=== PATIENT | male | born 1985 | race Caucasian/White ===

== ENCOUNTER 2020-03-24 11:42 | Outpatient (CLI) | payer SELFPAY | END 2020-03-24 11:43 | disposition home or self-care (01) | LOC: SPT 11:46 | PROVIDERS: Visit Provider Podiatrist Foot & Ankle Surgery | DX: Z47.89 Encounter for other orthopedic aftercare (principal); S93.326D Dislocation of tarsometatarsal joint of unspecified foot, subsequent encounter; X58.XXXD Exposure to other specified factors, subsequent encounter | CPT/HCPCS: 97760; L4361 ==

== ENCOUNTER 2020-04-01 09:08 | Outpatient (CLI) | payer SELFPAY ==
--- NOTE | 2020-04-01 09:15 | CT_ITS ---
WS: [id number] CT scan of the left foot. Additional two-dimensional coronal and sagittal reconstruction was faby d. MIP images were also performed. 04/01/2020 Clinical Data: fracture Comparison: Left foot, 03/24/2020. DLP: 793.[address] scans at [facility] use at least one of these dose optimization techniques: automat ed exposure control; mA and/or kV adjustment per patient size (includes targeted exams where dose is matched to clinical indication); or iterative reconstruction. Findings: There is a transverse fracture of the base of the third left metatarsal. However there is also a frac ture of the base of the left second metatarsal. The second metatarsal fracture is seen best on the ax ial views, 58 of 96.. The remainder the foot shows that the tarsal bones and phalanges are intact. Th e first, fourth and fifth metatarsals are normal. CT/CT foot LT wo con* [id number] Impression: 1. Transverse fracture of left third metatarsal. 2. Additional fracture of the base of the left second metatarsal.
== END 2020-04-01 09:09 | disposition home or self-care (01) ==
PROVIDERS: Visit Provider Podiatrist Foot & Ankle Surgery
DX: S92.332A Displaced fracture of third metatarsal bone, left foot, initial encounter for closed fracture (principal); S92.322A Displaced fracture of second metatarsal bone, left foot, initial encounter for closed fracture; X58.XXXA Exposure to other specified factors, initial encounter
CPT/HCPCS: 73700

== ENCOUNTER → 2020-04-27 08:23 | Outpatient (BNVA) | payer SELFPAY | PROVIDERS: Visit Provider Podiatrist Foot & Ankle Surgery | DX: S97.82XA Crushing injury of left foot, initial encounter (principal); S92.325A Nondisplaced fracture of second metatarsal bone, left foot, initial encounter for closed fracture; S92.335A Nondisplaced fracture of third metatarsal bone, left foot, initial encounter for closed fracture; X58.XXXA Exposure to other specified factors, initial encounter | CPT/HCPCS: 73630 ==

== ENCOUNTER → 2020-05-25 08:41 | Outpatient (BNVA) | payer SELFPAY | PROVIDERS: Visit Provider Podiatrist Foot & Ankle Surgery | DX: S93.326A Dislocation of tarsometatarsal joint of unspecified foot, initial encounter (principal); S97.82XA Crushing injury of left foot, initial encounter; X58.XXXA Exposure to other specified factors, initial encounter | CPT/HCPCS: 73630 ==

== ENCOUNTER → 2020-06-08 07:59 | Outpatient (BNVA) | payer SELFPAY | PROVIDERS: Visit Provider Podiatrist Foot & Ankle Surgery | DX: S97.82XD Crushing injury of left foot, subsequent encounter (principal); X58.XXXD Exposure to other specified factors, subsequent encounter | CPT/HCPCS: 73630 ==

== ENCOUNTER → 2020-06-23 14:04 | Outpatient (BNVA) | payer SELFPAY | PROVIDERS: Visit Provider Podiatrist Foot & Ankle Surgery | DX: S93.326A Dislocation of tarsometatarsal joint of unspecified foot, initial encounter (principal); S97.82XA Crushing injury of left foot, initial encounter; X58.XXXA Exposure to other specified factors, initial encounter | CPT/HCPCS: 73630 ==

== ENCOUNTER → 2020-09-16 11:39 | Outpatient (BNVA) | payer OTHER, SELFPAY | DX: Z20.822 Contact with and (suspected) exposure to COVID-19 (principal) | CPT/HCPCS: 87635 ==

== ENCOUNTER → 2020-11-01 13:16 | Outpatient (BNVA) | payer SELFPAY | PROVIDERS: Visit Provider Nurse Practitioner Family | DX: J02.9 Acute pharyngitis, unspecified (principal) | CPT/HCPCS: 87071; 87635; 87880 ==

== ENCOUNTER → 2021-01-15 10:48 | Outpatient (BNVA) | payer OTHER, SELFPAY | PROVIDERS: PCP Family Medicine; Visit Provider Registered Nurse Neonatal Intensive Care | DX: Z20.822 Contact with and (suspected) exposure to COVID-19 (principal) | CPT/HCPCS: 87635 ==

== ENCOUNTER 2021-12-15 10:35 | Outpatient (CLI) | payer OTHER, SELFPAY ==
--- NOTE | 2021-12-15 11:11 | XR_ITS ---
WS: [id number] Left foot, 3 views, 12/15/2021 Clinical Data: FOOT PAIN Comparison: Left foot, 06/23/2020. Findings: No fractures or dislocations are seen. No bone destruction or erosion is noted. There is a small buni on at the head of the left first metatarsal. XR/XR foot LT min 3V* [id number] Impression: Bunion at the head of the left first metatarsal.
--- NOTE | 2021-12-15 11:11 | XR_ITS ---
WS: [id number] Cervical spine, 3 views, 12/15/2021 Clinical Data: NECK PAIN Comparison: None. Findings: No compression fractures are seen. Degenerative disc narrowing at C5-C6 with anterior osteo phytes is seen. There is no prevertebral soft tissue swelling. The odontoid is unremarkable. The soft tissues of the neck and the lung apices are normal. The patient is had repair of a lateral right cla vicular fracture. XR/XR cervical spine 3V* [id number] Impression: Degenerative disc narrowing at C5-C6 with anterior osteophytes.
== END 2021-12-15 10:36 | disposition home or self-care (01) ==
PROVIDERS: PCP Family Medicine; Visit Provider Podiatrist Foot & Ankle Surgery
DX: M21.612 Bunion of left foot (principal); M47.892 Other spondylosis, cervical region; M25.78 Osteophyte, vertebrae; M79.672 Pain in left foot; M54.2 Cervicalgia
CPT/HCPCS: 72040; 73630

== ENCOUNTER → 2021-12-22 11:33 | Outpatient (BNVA) | payer OTHER, SELFPAY | PROVIDERS: PCP Family Medicine; Visit Provider Podiatrist Foot & Ankle Surgery | DX: S97.82XA Crushing injury of left foot, initial encounter (principal); M79.672 Pain in left foot; X58.XXXA Exposure to other specified factors, initial encounter | CPT/HCPCS: 73630 ==

== ENCOUNTER 2022-01-04 08:52 | Outpatient (CLI) | payer OTHER, SELFPAY ==
--- NOTE | 2022-01-04 09:30 | MR_ITS ---
WS: [id number] MRI OF THE LEFT FOOT WITHOUT GADOLINIUM ENHANCEMENT. INDICATION: Dorsal foot pain carpal metacarpal area TECHNIQUE: Coronal PD, coronal T2 fat sat, axial T1, axial T2, axial PD, sagittal STIR, sagittal T1 FINDINGS: Pes planus. Tiny plantar calcaneal spur. Normal plantar aponeurosis. Normal talus and calca neus. Normal tibial plafond. Normal tibiotalar articulation. Normal talonavicular articulation. Dista l Achilles is normal in appearance. Normal cuboid. Cuneiforms appear normal. Small amount of edema in the 3rd proximal metatarsal shaft small linear area of signal abnormality extending to the cortical surface suspicious for tiny nondisplaced fracture or stress fracture. Recommend correlation with area of pain. No other visualized fractures. Hallux valgus. Degenerative arthritis at the 1st MTP. No significant edema along the dorsal foot. No cystic or solid lesions. No drainable fluid collections. MR/MR foot LT wo con* [id number] IMPRESSION: 1. Hallux valgus with bunion deformity. Degenerative arthritis 1st MTP with a few periarticular erosions. 2. Tiny amount of edema in the shaft of the 3rd proximal metatarsal with a sma ll linear lucency suspicious for tiny nondisplaced traumatic fracture or stress fracture. Recommend correlation with area of pain. 3. Pes planus. 4. No other acute findings.
== END 2022-01-04 08:53 | disposition home or self-care (01) ==
PROVIDERS: PCP Family Medicine; Visit Provider Podiatrist Foot & Ankle Surgery
DX: S97.82XA Crushing injury of left foot, initial encounter (principal); M20.12 Hallux valgus (acquired), left foot; M21.612 Bunion of left foot; M19.072 Primary osteoarthritis, left ankle and foot; M21.42 Flat foot [pes planus] (acquired), left foot; X58.XXXA Exposure to other specified factors, initial encounter
CPT/HCPCS: 73718

== ENCOUNTER 2022-01-16 14:37 | Outpatient (RCR) | payer OTHER, SELFPAY | END 2022-02-07 23:59 | disposition home or self-care (01) | LOC: SPT 14:37 | PROVIDERS: PCP Family Medicine; Referring Provider Family Medicine; Visit Provider Family Medicine | DX: M79.671 Pain in right foot (principal); M54.2 Cervicalgia; M54.50 Low back pain, unspecified | CPT/HCPCS: 97110; 97162; 97164 ==

== ENCOUNTER 2022-08-14 09:12 | Outpatient (CLI) | payer SELFPAY ==
--- NOTE | 2022-08-14 09:28 | XRR_ITS ---
PROCEDURE INFORMATION: Exam: XR Chest Exam date and time: 08/14/2022 9:36 AM Age: 37 years old Clinical indication: Dyspnea and shortness of breath and wheezing; Patient HX: SOB, since covid in 2020; Additional info: Wheezing symptom/dyspnea on exertion TECHNIQUE: Imaging protocol: Radiologic exam of the chest. Views: 2 views. COMPARISON: CR XR cervical spine 3V* [id number] 12/15/2021 11:17 AM FINDINGS: Lungs: Unremarkable. No consolidation. Pleural spaces: Unremarkable. No pleural effusion. No pneumothorax. Heart/Mediastinum: Unremarkable. No cardiomegaly. Bones/joints: Prior plate and screw fixation of the right clavicle. XR/XR chest 2V* [id number] IMPRESSION: No acute cardiopulmonary abnormality.
== END 2022-08-14 09:13 | disposition home or self-care (01) ==
PROVIDERS: PCP Family Medicine; Visit Provider Family Medicine
DX: R06.00 Dyspnea, unspecified (principal); R06.2 Wheezing
CPT/HCPCS: 71046